=== PATIENT | male | born 1950 | race Hispanic/Latino ===

== ENCOUNTER 2016-05-24 09:56 | Emergency (ER) | payer MEDICARE, OTHER ==
[2016-05-24] MEDS ORDERED: predniSONE 20 MG TABLET ONE (10:58)
[2016-05-24] MEDS ORDERED: ALBUTEROL SULFATE/IPRATROPIUM 3 ML NEBU IH ONE (10:59)
[2016-05-24] MEDS: predniSONE 20 MG TABLET PO ONE (11:00)
[2016-05-24] MEDS: ALBUTEROL SULFATE/IPRATROPIUM 3 ML NEBU IH ONE (11:00)
[2016-05-24] MEDS ORDERED: ALBUTEROL SULFATE 2.5 MG/0.5 ML VIAL.NEB IH ONE (11:14)
[2016-05-24] MEDS: ALBUTEROL SULFATE 2.5 MG/0.5 ML VIAL.NEB IH ONE (11:15)
[2016-05-24 11:31] VITALS: BP 177/88
--- NOTE | 2016-05-24 12:02 | ERNOTE ---
Medical Problem HPI - Narrative Date of Service: 05/24/16 - General Chief Complaint: General Assessment Time Seen by Provider: 05/24/16 10:42 Source: patient Exam Limitations: no limitations - Immun/Allergies/Home Medications Immunizations: IMMUNIZATION HX Immunizations Up to Date Yes History of Influenza Vaccine No Hx Pneumococcal Vaccination No Allergies/Adverse Reactions: Allergies Beta-Blockers (Beta-Adrenergic Bloc Allergy (Verified 05/07/15 11:10) Other cough Iodinated Contrast Media - IV Dye Allergy (Verified 05/07/15 11:10) Shortness of Breath Home Medications: HOME MEDICATIONS Albuterol Sulfate/Ipratropium [Duoneb 2.5-0.5MG/3ML Soln] 3 ml IH QID 05/17/14 [ Last Taken Unknown] Aspirin [Aspirin Enteric Coated] 81 mg PO DAILY 05/17/14 [Last Taken Unknown] Cetirizine HCl [Zyrtec] 10 mg PO DAILY 05/17/14 [Last Taken Unknown] Clonidine HCl [Catapres] 0.2 mg PO TID 05/17/14 [Last Taken Unknown] Fenofibrate [Lofibra] 160 mg PO DAILY 05/17/14 [Last Taken Unknown] Fluticasone Propionate [Flonase] 2 spray NS DAILY 05/17/14 [Last Taken Unknown] Fluticasone/Salmeterol [Advair 500-50 Diskus] 1 each IH BID 05/17/14 [Last Taken Unknown] Glipizide 10 mg PO DAILY 05/17/14 [Last Taken Unknown] Insulin Glargine,Hum.rec.anlog [Lantus] 30 unit SQ DAILY 05/17/14 [Last Taken Unknown] Ipratropium/Albuterol Sulfate [Combivent Respimat Inhal [place]] 1 puff IH QID [Last Taken Unknown] Losartan/Hydrochlorothiazide [Hyzaar 100-25 Tablet] 1 each PO DAILY 05/17/14 [ Last Taken Unknown] Montelukast Sodium [Singulair] 10 mg PO DAILY 05/17/14 [Last Taken Unknown] Potassium Chloride [Klor-Con M20] 20 meq PO TID 05/17/14 [Last Taken Unknown] Spironolactone [Aldactone] 50 mg PO DAILY 05/17/14 [Last Taken Unknown] metFORMIN HCL [Glucophage] 1,000 mg PO TID 05/17/14 [Last Taken Unknown] Amoxicillin Trihydrate [Amoxil] 500 mg PO Q8H 10 Days 05/24/16 [Last Taken Unknown] Prednisone 50 mg PO DAILY #5 tablet 05/24/16 [Last Taken Unknown] - History of Present History Narrative: "my COPD". Patient presents with cough and increasing SOB for the last week. He relates he has COPD and has been having more wheezing and cough. No hemoptysis. He normally gets antibiotic and steroids. He states Z-paks do not work and amoxil works for him and thats what he normally gets. No CP. No leg swelling. No DVT Sx. He states he gets this fairly frequently. He has been admitted before but states this is not nearly as bad today as when he has been admitted in the past. Timing: constant Severity: moderate Modifying Factors - (Improves): Present: other - nebs Review of Systems - Review of Systems Constitutional: Absent: fever ENT: Present: nose congestion. Absent: sore throat Respiratory: Present: cough Cardiology: Absent: chest pain Gastrointestinal/Abdominal: Absent: abdominal pain Skin: Absent: rash Neurological: Absent: weakness - Patient's Past Medical History Patient History - Medical: Diabetes Type 2 Patient History - Cardiac/Respiratory: COPD Patient History - Cancer: No Hx of Cancer Patient History - Surgical Procedures: Cholecystectomy Patient History - Other: None - Social History Living Situations: home Does anyone smoke in the home?: No Smoking Status: Former smoker Alcohol Use: none Drug Use: none - Immunizations Immunizations Up to Date: Yes Hx Pneumococcal Vaccination: No History of Influenza Vaccine: No Physical Exam - Physical Exam General Appearance: Present: alert, no apparent distress, other - occasional cough. No distress. Speaks in full sentences. Eye Exam: Normal inspection: bilateral, PERRL: bilateral Ears, Nose, Throat: Present: nasal congestion Neck: Present: normal inspection Respiratory: Present: no respiratory distress, no accessory muscle use, wheezing , other - scattered diffuse wheezing noted, no distress, non-toxic. Cardiovascular/Chest: Present: regular rate, rhythm Gastrointestinal/Abdominal: Present: normal bowel sounds, nontender, soft Back Exam: Present: normal range of motion Extremity Exam: Present: other - no calf tendenress or DVT findings. 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 Vital Signs: Vital Signs 05/24/16 05/24/16 05/24/16 10:08 11:00 11:15 Temperature 36.3 C L Pulse Rate 67 73 65 Respiratory 16 19 18 Rate Blood Pressure 170/95 O2 Sat by Pulse 94 94 94 Oximetry 05/24/16 11:27 Temperature Pulse Rate 70 Respiratory 20 Rate Blood Pressure 177/88 O2 Sat by Pulse 94 Oximetry - X-Ray X-Ray #1 X-Ray: chest Interpretation: Interp. by me X-ray Comments: no pneumonia - Progress/Reassessment Chief Complaint: General Assessment Progress Note-Subjective: 05/24/16 11:55 Pt with significantly improved wheezing after neb., No distress. I offered observation but he wishes to go home. Understands risks and benefits. He wants Amoxil. I discussed warning signs and reasons to return as well as the need for close f/u. Departure - Departure Clinical Impression: COPD with exacerbation Disposition: Home self-care Condition: Stable Instructions: Chronic Obstructive Pulmonary Disease Exacerbation, [id number] Additional Instructions: Rest. Fluids. Antibiotic as directed. Steroids. Continue nebulizers. Follow -up with your doctor within 3 days for a re-check. Return for increased trouble breathing, fever or if your condition worsens or changes in any way. Referrals: Susie Gomez MD [Primary Care Provider] - Prescriptions: Amoxicillin Trihydrate [Amoxil] 500 mg PO Q8H 10 Days Prednisone 50 mg PO DAILY #5 tablet
== END 2016-05-24 12:07 | disposition home or self-care (01) ==
LOC: ER 09:56
DX: J44.1 Chronic obstructive pulmonary disease with (acute) exacerbation (principal); Z87.891 Personal history of nicotine dependence; Z90.49 Acquired absence of other specified parts of digestive tract

== ENCOUNTER 2016-09-21 11:09 | Emergency (ER) | payer MEDICARE, OTHER ==
[2016-09-21] MEDS ORDERED: ALBUTEROL SULFATE/IPRATROPIUM 3 ML NEBU IH ONE ×2 (12:30→12:35)
[2016-09-21 12:45] LABS: Hemoglobin 15.2 gm/dL (13.5-18.0); Mean Cell Volume 80.6 fl (78-100); Mean Corpuscular Hemoglobin 27.8 pg (27-31); Mean Corpuscular Hgb Conc 34.5 g/dl (32-36); Mean Platelet Volume 8.8 fl (6.0-9.5); Neutrophil # 5.6 K/mm3 (1.3-6.0); Neutrophil % 66.5 % (42-75.0); Platelet Count 280 K/mm3 (150-450); Red Blood Count 5.46 M/mm3 (4.7-6.0); Red Cell Distribution Width 13.4 % (11.5-14.0); White Blood Count 8.4 K/mm3 (4.0-10.5)
--- NOTE | 2016-09-21 12:45 | ERNOTE ---
Date of Service: 09/21/16 Time Seen by Provider: 09/21/16 12:14 Stated Complaint: SINUS Presenting Symptoms:: cough, runny nose, other - sinus congestion Source: patient Exam Limitations: no limitations Immunizations: IMMUNIZATION HX Immunizations Up to Date Yes History of Influenza Vaccine Yes Hx Pneumococcal Vaccination No Allergies/Adverse Reactions: Allergies Beta-Blockers (Beta-Adrenergic Bloc Allergy (Verified 09/21/16 12:18) Other cough Iodinated Contrast Media - Oral and Allergy (Verified 09/21/16 12:18) Shortness of Breath Home Medications: HOME MEDICATIONS Albuterol Sulfate/Ipratropium [Duoneb 2.5-0.5MG/3ML Soln] 3 ml IH QID 05/17/14 [ Last Taken Unknown] Aspirin [Aspirin Enteric Coated] 81 mg PO DAILY 05/17/14 [Last Taken Unknown] Cetirizine HCl [Zyrtec] 10 mg PO DAILY 05/17/14 [Last Taken Unknown] Clonidine HCl [Catapres] 0.2 mg PO TID 05/17/14 [Last Taken Unknown] Fenofibrate [Lofibra] 160 mg PO DAILY 05/17/14 [Last Taken Unknown] Fluticasone Propionate [Flonase] 2 spray NS DAILY 05/17/14 [Last Taken Unknown] Fluticasone/Salmeterol [Advair 500-50 Diskus] 1 each IH BID 05/17/14 [Last Taken Unknown] Insulin Glargine,Hum.rec.anlog [Lantus] 30 unit SQ DAILY 05/17/14 [Last Taken Unknown] Ipratropium/Albuterol Sulfate [Combivent Respimat Inhal [place]] 1 puff IH QID [Last Taken Unknown] Losartan/Hydrochlorothiazide [Hyzaar 100-25 Tablet] 1 each PO DAILY 05/17/14 [ Last Taken Unknown] Montelukast Sodium [Singulair] 10 mg PO DAILY 05/17/14 [Last Taken Unknown] Potassium Chloride [Klor-Con M20] 20 meq PO TID 05/17/14 [Last Taken Unknown] Spironolactone [Aldactone] 50 mg PO DAILY 05/17/14 [Last Taken Unknown] glipiZIDE [Glipizide] 10 mg PO DAILY 05/17/14 [Last Taken Unknown] metFORMIN HCL [Glucophage] 1,000 mg PO TID 05/17/14 [Last Taken Unknown] Doxycycline Monohydrate 100 mg PO BID #20 tablet 09/21/16 [Last Taken Unknown] predniSONE [Prednisone] 3 tab PO DAILY #9 tab 09/21/16 [Last Taken Unknown] - History of Present Ilness Narrative: Pt. comes in with c/o rhinorrhea, sinus congestion, SOB, and wheezing for a week. Pt. has a hx of COPD and states that he has had to use his nebulizer more frequently in the past 2-3 days. Pt. denies any fevers, chills, or prehospital treatment. Review of Systems - Review of Systems Constitutional: Present: no symptoms reported. Absent: recent illness, fever, chills, weakness, fatigue, malaise EYE: Present: no symptoms reported ENT: Present: nose congestion, nasal drainage - rclear Respiratory: Present: shortness of breath, cough, wheezing Cardiology: Present: no symptoms reported. Absent: chest pain, palpitations, edema Gastrointestinal/Abdominal: Present: no symptoms reported. Absent: nausea, vomiting, diarrhea Musculoskeletal: Present: no symptoms reported. Absent: back pain, joint pain Skin: Present: no symptoms reported Neurological: Present: no symptoms reported. Absent: headache, dizziness/light- headedness, numbness, tingling All Other Systems: All systems neg except as marked - Patient's Past Medical History Patient History - Medical: Diabetes Type 2 Patient History - Cardiac/Respiratory: COPD, Hypertension Patient History - Cancer: No Hx of Cancer Patient History - Surgical Procedures: Cholecystectomy Patient History - Other: None - Social History Living Situations: home Abuse History: No History of abuse Psych History: No pertinent hx Does anyone smoke in the home?: No Smoking Status: Former smoker Have you smoked in the past 12 months: No Do you dip or chew tobacco: No Alcohol Use: none Drug Use: none - Immunizations Immunizations Up to Date: Yes Hx Pneumococcal Vaccination: No History of Influenza Vaccine: Yes Physical Exam - Physical Exam General Appearance: Present: wd/wn, alert, no apparent distress Eye Exam: Normal inspection: bilateral, PERRL: bilateral, EOMI: bilateral Ears, Nose, Throat: Present: normal ENT inspection, normal pharynx Neck: Present: normal inspection, nontender. 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 Absent: pallor, skin rash ED Progress - Vital Signs Patient's Vital Signs:: I have reviewed the patient's vital signs. Vital Signs: Vital Signs 09/21/16 11:34 Temperature 36.9 C Pulse Rate 100 Respiratory 18 Rate Blood Pressure 152/87 O2 Sat by Pulse 94 Oximetry - X-Ray X-Ray #1 X-Ray: chest Interpretation: Reviewed by me X-ray Comments: bronchial cuffing no consolidation - Progress/Reassessment Chief Complaint: Upper Respiratory Symptoms Progress:: Improved Departure - Departure Clinical Impression: COPD with exacerbation, Bronchitis Sinusitis Qualifiers: Sinusitis location: frontal Chronicity: acute Recurrence: non-recurrent Qualified Code(s): J01.10 - Acute frontal sinusitis, unspecified Disposition: Home self-care Condition: Good Instructions: Sinusitis, Adult, [id number], Acute Bronchitis Additional Instructions: Please follow up with primary provider in 2-3 days. Monitor your blood sugar closely. Referrals: Susie Gomez MD [Primary Care Provider] - Prescriptions: Doxycycline Monohydrate 100 mg PO BID #20 tablet predniSONE [Prednisone] 3 tab PO DAILY #9 tab
[2016-09-21 12:57] LABS: Albumin * 3.9 gm/dl (3.4-5.0); Anion Gap 14.7 mmol/L (6.8-13.8); BUN/Creatinine Ratio 14.9 (9.0-21.6); Bilirubin, Total 0.5 mg/dL (0.0-1.1); Calcium * 9.2 mg/dL (7.9-10.9); Carbon Dioxide 25.1 mmol/L (24-32.6); Potassium 3.8 mmol/L (3.4-4.6); Total Protein 7.7 gm/dL (6.2-8.2)
[2016-09-21] MEDS ORDERED: METHYLPREDNISOLONE ACETATE 80 MG/ML VIAL IM ONE (13:18)
[2016-09-21] MEDS ORDERED: DOXYCYCLINE HYCLATE 100 MG TABLET PO ONE (13:21)
[2016-09-21] MEDS ORDERED: METHYLPREDNISOLONE ACETATE 80 MG/ML VIAL ONE (13:24)
[2016-09-21] MEDS ORDERED: DOXYCYCLINE HYCLATE 100 MG TABLET ONE (13:26)
[2016-09-21 13:37] LABS: Hemoglobin A1C 9.3 % (4.00-6.0)
[2016-09-21 15:36] VITALS: BP 151/84
== END 2016-09-21 13:55 | disposition home or self-care (01) ==
LOC: ER 11:09
DX: J44.1 Chronic obstructive pulmonary disease with (acute) exacerbation (principal); J20.9 Acute bronchitis, unspecified; J44.0 Chronic obstructive pulmonary disease with (acute) lower respiratory infection; J01.10 Acute frontal sinusitis, unspecified; E11.9 Type 2 diabetes mellitus without complications; I10 Essential (primary) hypertension

== ENCOUNTER 2016-12-04 12:11 | Emergency (ER) | payer MEDICARE, OTHER ==
[2016-12-04] MEDS ORDERED: ALBUTEROL SULFATE/IPRATROPIUM 3 ML NEBU IH ONE ×2 (12:56→13:07)
[2016-12-04] MEDS ORDERED: METHYLPREDNISOLONE SOD SUCC/PF 40 MG/ML VIAL IM ONE (12:56)
--- NOTE | 2016-12-04 12:57 | ERNOTE ---
Dyspnea - Date Date of Service: 12/04/16 - General Presenting Symptoms: shortness of breath, wheezing Source: patient Exam Limitations: no limitations - Immun/Allergies/Home Medications Immunizations: IMMUNIZATION HX Immunizations Up to Date Yes History of Influenza Vaccine Yes Hx Pneumococcal Vaccination No Allergies/Adverse Reactions: Allergies Beta-Blockers (Beta-Adrenergic Bloc Allergy (Verified 09/21/16 12:18) Other cough Iodinated Contrast- Oral and IV Dye Allergy (Verified 09/21/16 12:18) Shortness of Breath Home Medications: HOME MEDICATIONS Albuterol Sulfate/Ipratropium [Duoneb 2.5-0.5MG/3ML Soln] 3 ml IH QID 05/17/14 [ Last Taken Unknown] Aspirin [Aspirin Enteric Coated] 81 mg PO DAILY 05/17/14 [Last Taken Unknown] Cetirizine HCl [Zyrtec] 10 mg PO DAILY 05/17/14 [Last Taken Unknown] Clonidine HCl [Catapres] 0.2 mg PO TID 05/17/14 [Last Taken Unknown] Fenofibrate [Lofibra] 160 mg PO DAILY 05/17/14 [Last Taken Unknown] Fluticasone Propionate [Flonase] 2 spray NS DAILY 05/17/14 [Last Taken Unknown] Fluticasone/Salmeterol [Advair 500-50 Diskus] 1 each IH BID 05/17/14 [Last Taken Unknown] Insulin Glargine,Hum.rec.anlog [Lantus] 30 unit SQ DAILY 05/17/14 [Last Taken Unknown] Ipratropium/Albuterol Sulfate [Combivent Respimat Inhal [place]] 1 puff IH QID [Last Taken Unknown] Losartan/Hydrochlorothiazide [Hyzaar 100-25 Tablet] 1 each PO DAILY 05/17/14 [ Last Taken Unknown] Montelukast Sodium [Singulair] 10 mg PO DAILY 05/17/14 [Last Taken Unknown] Potassium Chloride [Klor-Con M20] 20 meq PO TID 05/17/14 [Last Taken Unknown] Spironolactone [Aldactone] 50 mg PO DAILY 05/17/14 [Last Taken Unknown] glipiZIDE [Glipizide] 10 mg PO DAILY 05/17/14 [Last Taken Unknown] metFORMIN HCL [Glucophage] 1,000 mg PO TID 05/17/14 [Last Taken Unknown] Doxycycline Monohydrate 100 mg PO BID #20 tablet 09/21/16 [Last Taken Unknown] predniSONE [Prednisone] 3 tab PO DAILY #9 tab 09/21/16 [Last Taken Unknown] - History of Present Illness Narrative: patient states he has been SOb x 1 week. c/o increased cough with change in sputum. 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 Denies: fever/chills, chest pain/ discomfort Review of Systems - Review of Systems Constitutional: Present: See HPI EYE: Present: no symptoms reported ENT: Present: See HPI, nose congestion Respiratory: Present: See HPI, shortness of breath, cough, orthopnea, wheezing Cardiology: Present: no symptoms reported, See HPI Gastrointestinal/Abdominal: Present: no symptoms reported Genitourinary: Present: no symptoms reported Musculoskeletal: Present: no symptoms reported Skin: Present: no symptoms reported Neurological: Present: no symptoms reported Endocrine: Present: no symptoms reported Hematologic/Lymphatic: Present: no symptoms reported Psych: Present: no symptoms reported All Other Systems: All systems neg except as marked - Patient's Past Medical History Patient History - Medical: Diabetes Type 2 Patient History - Cardiac/Respiratory: COPD, Hypertension Patient History - Cancer: No Hx of Cancer Patient History - Surgical Procedures: Cholecystectomy Patient History - Other: None - Social History Living Situations: home Abuse History: No History of abuse Psych History: No pertinent hx Does anyone smoke in the home?: No Smoking Status: Former smoker Alcohol Use: none Drug Use: none - Immunizations Immunizations Up to Date: Yes Hx Pneumococcal Vaccination: No History of Influenza Vaccine: Yes Physical Exam - Physical Exam General Appearance: Present: wd/wn, alert, no apparent distress Head Exam: Present: normal inspection, no evidence of injury Ears, Nose, Throat: Present: normal except -, nasal congestion, normal pharynx Neck: Present: normal inspection, nontender, full range of motion Respiratory: Present: no respiratory distress, chest nontender, decreased breath sounds, wheezing Cardiovascular/Chest: Present: regular rate, rhythm, normal peripheral pulses Gastrointestinal/Abdominal: Present: normal bowel sounds, nontender, nondistended, soft, no organomegaly Back Exam: Present: normal inspection, normal range of motion, no CVA tenderness , no vertebral tenderness Extremity Exam: Present: normal inspection, non-tender, normal range of motion, no edema Neurological Exam: Present: alert, oriented, normal mood/affect, no motor/ sensory deficits Skin Exam: Present: normal color, warm/dry Lymphatic Exam: Present: no adenopathy ED Progress - Results and Orders Patient's Lab Results:: I have reviewed the patient's lab results. Results and Orders: patient lab results indicate infection and and hyponatremia. - Vital Signs Patient's Vital Signs:: I have reviewed the patient's vital signs. Vital Signs: Vital Signs 12/04/16 12:23 Temperature 37.2 C Pulse Rate 80 Respiratory 20 Rate Blood Pressure 148/90 O2 Sat by Pulse 93 Oximetry - EKG EKG: NSR EKG read: Reviewed by me - X-Ray X-Ray #1 X-Ray: chest Interpretation: Reviewed by me X-ray Comments: X-RAY REPORT [id number] RAD/Chest PA Lateral * Exam Date: 12/04/2016 12:55 Ordering Physician: Jose De Oliveira HISTORY: Shortness of breath. Additional history from technologist: History of COPD, shortness of breath getting worse. TECHNIQUE: PA and lateral views of the chest were obtained. 2 images. COMPARISONS: 09/21/2016 FINDINGS: Chest PA Lateral * Hyperinflated lung volumes. No neel consolidation or focal mass identified however there is a vague infiltrate suggested at the right upper lung field, at the middle portion of the lung field. This may be located in the superior segment of the right lower lobe as there is a new increased density overlying the upper to midthoracic spine on the lateral image. No pneumothorax or pleural fluid collections. Cardiac size within normal limits. Mild tortuosity of the thoracic aorta present. Trachea is in normal position. Bones show degenerative changes of the spine. IMPRESSION: 1. Vague infiltrate suggested in the superior segment right lower lobe as discussed above. Correlate clinically for pneumonia. Recommend follow-up to document resolution. 2. Hyperinflated lungs, which is compatible with history of COPD. Electronically signed by Ezra Roland M.D.. Ezra Roland MD Dict: 12/04/16 1340 Typed: 12/04/16 1340/ 12/04/16 1341 - Progress/Reassessment Chief Complaint: Dyspnea Progress:: Unchanged Plan - Plan Plan: patient refuses to be admitted, states he has to take care of his . after speaking with admitting physician Dr Underwood who is covering for patients PCP she agrees to send patient home on po abx and for him to follow up with PCP. Departure Clinical Impression: Pneumonia Qualifiers: Pneumonia type: due to unspecified organism Laterality: right Lung location: middle lobe of lung Qualified Code(s): J18.1 - Lobar pneumonia, unspecified organism - Departure Disposition: Home Follow Up Needed Condition: Good Instructions: Community-Acquired Pneumonia, Adult, [id number] Additional Instructions: Continue any previous medications. Take antibiotic cyst prescribed. Please return to the emergency room symptoms return or persist. Follow-up with Dr. Ahuja in the next 2-3 days. Referrals: Susie Gomez MD [Primary Care Provider] -
[2016-12-04] MEDS ORDERED: METHYLPREDNISOLONE SOD SUCC/PF 125 MG/2 ML VIAL ONE (13:07)
[2016-12-04 13:11] LABS: Hematocrit 41.4 % (42.0-52.0); Hemoglobin 14.9 gm/dL (13.5-18.0); Mean Cell Volume 77.7 fl (78-100); Mean Platelet Volume 8.7 fl (6.0-9.5); Neutrophil # 9.6 K/mm3 (1.3-6.0); Neutrophil % 75.1 % (42-75.0); Platelet Count 264 K/mm3 (150-450); Red Blood Count 5.33 M/mm3 (4.7-6.0); Red Cell Distribution Width 13.2 % (11.5-14.0); White Blood Count 12.8 K/mm3 (4.0-10.5)
[2016-12-04] MEDS ORDERED: METHYLPREDNISOLONE SOD SUCC/PF 40 MG/ML VIAL ONE (13:12)
[2016-12-04 13:29] LABS: Troponin I Less than 0.017 ng/ml (0.00-0.10)
[2016-12-04 13:35] LABS: ALT 40 U/L (19-67); AST 17 U/L (0-48); Albumin * 3.9 gm/dl (3.4-5.0); Alkaline Phosphatase * 57 U/L (50-170); Anion Gap 15.4 mmol/L (6.8-13.8); BNP * 44 pg/mL (5-350); BUN/Creatinine Ratio 19.8 (9.0-21.6); Bilirubin, Total 0.7 mg/dL (0.0-1.1); Blood Urea Nitrogen 17 mg/dL (6-23); Ca. Corrected For Albumin 9.5 mg/dL (8.4-10.2); Calcium * 9.7 mg/dL (7.9-10.9); Carbon Dioxide 24.5 mmol/L (24-32.6); Chloride 92 mmol/L (97-106); Glucose * 242 mg/dL (70-110); Potassium 3.9 mmol/L (3.4-4.6); Sodium 128 mmol/L (132-142); Total Protein 7.6 gm/dL (6.2-8.2)
[2016-12-04 16:38] VITALS: BP 147/73
== END 2016-12-04 15:32 | disposition home or self-care (01) ==
LOC: ER 12:11 → UNDOADMOB 14:36 → MS 14:36 → ER 15:32
DX: J18.1 Lobar pneumonia, unspecified organism (principal); Z87.891 Personal history of nicotine dependence